=== PATIENT | female | born 1980 | race Two or more races ===

== ENCOUNTER 2023-07-06 10:04 | Inpatient (IN) | payer MEDICAID ==
[~2023-07-06] VITALS: Ht 162.6 cm; Wt 53.3 kg
[2023-07-06 10:37] VITALS: PULSE 122; RESP 22; O2SAT 98
[2023-07-06] MEDS ORDERED: ONDANSETRON HCL 4 MG/2 ML VIAL IV ONE (11:00)
[2023-07-06] MEDS ORDERED: VANCOMYCIN PER PHARMACY 0 MG IV SCH ×2 (11:00→16:45)
[2023-07-06] MEDS ORDERED: SODIUM CHLORIDE 0.9% 1,500 ML IV ONE (11:00)
[2023-07-06 11:25] LABS: Urine Bacteria NONE SEEN /hpf (None Seen); Urine Blood Negative /uL (Negative); Urine Clarity Clear (Clear); Urine Color PINK (Yellow); Urine Protein, UAD 2+ (Negative); Urine Specific Gravity 1.022 (1.001-1.035); Urine WBC 11 /hpf (0 - 5)
[2023-07-06 11:29] LABS: Amphetamine Screen, Urine Neg (NEGATIVE); Barbiturate Scree,Urine Neg (NEGATIVE); Benzodiazephine Screen, Urine Neg (NEGATIVE); Cocaine Screen, Urine Neg (NEGATIVE)
[2023-07-06 11:30] LABS: Cannabinoid Screen, Urine Neg (NEGATIVE); Opiate Scree,Urine Neg (NEGATIVE); Phencyclidine Screen, Urine Neg (NEGATIVE)
[2023-07-06 11:30] LABS: Base Excess 3.6 mmol/L (-2.0-2.0)
[2023-07-06] MEDS ORDERED: VANCOMYCIN 1GM/250ML 250 ML IV ONE (11:30)
[2023-07-06 11:32] LABS: Basophils # (auto) 0 10 ^3/uL (0-0.2); Basophils % (auto) 0.2 % (0.0-2.0); Eosinophils # (auto) 0 10 ^3/uL (0-0.8); Hematocrit 33.4 % (36.0-46.0); Hemoglobin 10.7 g/dL (12.2-16.2); Lymphocytes # (auto) 0.2 10 ^3/uL (0.4-5.4); Lymphocytes % (auto) 2.4 % (10.0-50.0); Mean Corpuscular Hemoglobin 29.1 pg (28.0-32.0); Mean Corpuscular Hgb Conc. 32.1 g/dL (32.0-36.0); Mean Corpuscular Volume 90.6 fL (80.0-100.0); Monocytes # (auto) 0.3 10 ^3/uL (0-1.3); Monocytes % (auto) 3.2 % (0.0-12.0); Neutrophils # (auto) 7.9 10 ^3/uL (1.6-8.6); Neutrophils % (auto) 94.2 % (37.0-80.0); Nucleated Red Blood Cells % 0.2 %; Red Blood Cells 3.68 10^6/uL (4.0-5.20); White Blood Cell 8.4 10^3/uL (4.4-10.8)
[2023-07-06 11:40] LABS: Red Cell Distribution Width 27.4 % (11.8-14.3)
[2023-07-06 11:49] LABS: Alanine Aminotransferase 50 U/L (7-40); Albumin 2.2 g/dL (3.2-4.8); Alkaline Phosphatase 371 U/L (46-116); Anion Gap 8 (5-15); Aspartate Aminotransferase 269 U/L (13-40); BUN/Creatinine Ratio 34.9 (10.0-20.0); Bilirubin, Total 0.6 mg/dL (0.2-1.0); Blood Alcohol < 3.0 mg/dL (<10); Blood Urea Nitrogen 15 mg/dL (9-23); Calcium 7.3 mg/dL (8.5-10.1); Carbon Dioxide 25 mmol/L (20-30); Chloride 103 mmol/L (98-107); Glucose 104 mg/dL (74-106); Lactic Acid w/Reflex 2.5 mmol/L (0.4-2.0); Potassium 3.7 mmol/L (3.5-5.1); Sodium 136 mmol/L (136-145); Total Protein 5.6 g/dL (5.7-8.2)
[2023-07-06 11:56] LABS: INR 1.04 (0.9-1.15); Partial Thromboplastin Time 29.6 SEC (24.5-34.5); Prothrombin Time 10.9 sec (9.3-11.8)
[2023-07-06] MEDS ORDERED: PIPERACILLIN-TAZOB 3.375GM 100 ML IV SCH ×2 (12:00→20:00)
[2023-07-06 13:05] LABS: Magnesium 1.4 mg/dL (1.6-2.6)
[2023-07-06] MEDS ORDERED: IOHEXOL 350 MG/ML 100ML IJ ONE (13:14)
[2023-07-06 13:24] LABS: Acetaminophen < 2.0 UG/ML (10.0-20.0); Salicylate < 3.0 mg/dL (2.8-20.0)
[2023-07-06] MEDS ORDERED: SODIUM CHLORIDE 0.9% 1,000 ML IV ONE (15:30)
[2023-07-06] MEDS ORDERED: PPN PER PHARMACY 0 ML IV SCH (16:45)
[2023-07-06] MEDS ORDERED: MEROPENEM 1GM IVPB 100 ML IV ONE (16:45)
[2023-07-06] MEDS ORDERED: PANTOPRAZOLE 40 MG/10 ML VIAL INJ IV ONE (16:45)
[2023-07-06] MEDS ORDERED: NITROGLYCERIN 0.4 MG SL TAB SL PRN (16:45)
[2023-07-06] MEDS ORDERED: ACETAMINOPHEN 650 MG RECT SUPP PR PRN (16:45)
[2023-07-06] MEDS ORDERED: MORPHINE SULFATE INJ 2 MG/ml SYRG IV PRN (16:45)
[2023-07-06] MEDS: SODIUM CHLORIDE 0.9% 1,000 ML IV SCH (17:05)
[2023-07-06] MEDS: MAGNESIUM SULFATE 1GM/100ML 100 ML IV SCH ×4 (17:06→20:47)
[2023-07-06 19:15] VITALS: PULSE 113; RESP 19; O2SAT 97
[2023-07-06] MEDS ORDERED: DEXTROSE (50%) 50ML SYRG IV SCH (20:00)
[2023-07-06] MEDS ORDERED: AMINO ACID INFUSION IN D10W 1,000 ML IV NR (20:00)
[2023-07-06 22:33] LABS: Erythrocyte Sedimentation Rate 62 mm/hr (0-20)
[2023-07-06] MEDS: InsuLIN REG 1unit/0.01ml Soln (100units/ml) SC SCH (23:09)
[2023-07-06] MEDS: ACCU-CHEK COMFORT CURVE STRIP VI SCH (23:10)
[2023-07-06] MEDS: MEROPENEM 1GM IVPB 100 ML IV SCH (23:13)
[2023-07-07] VITALS (14 sets, daily range): BP systolic 90–110; BP diastolic 57–78; PULSE 92–102; RESP 14–23; O2SAT 98–100
[2023-07-07] MEDS: VANCOMYCIN 1GM/250ML 250 ML IV SCH ×2 (01:02→13:00)
[2023-07-07] MEDS: InsuLIN REG 1unit/0.01ml Soln (100units/ml) SC SCH ×2 (05:33→12:00)
[2023-07-07] MEDS: ACCU-CHEK COMFORT CURVE STRIP VI SCH ×2 (05:33→12:00)
[2023-07-07 06:16] LABS: Basophils # (auto) 0 10 ^3/uL (0-0.2); Eosinophils # (auto) 0 10 ^3/uL (0-0.8); Hemoglobin 8.2 g/dL (12.2-16.2); Lymphocytes # (auto) 0.1 10 ^3/uL (0.4-5.4); Monocytes # (auto) 0.3 10 ^3/uL (0-1.3); Neutrophils # (auto) 8.5 10 ^3/uL (1.6-8.6); Nucleated Red Blood Cells % 0.1 %
[2023-07-07 06:20] LABS: Basophils % (auto) 0.4 % (0.0-2.0); Hematocrit 25.1 % (36.0-46.0); Lymphocytes % (auto) 1.3 % (10.0-50.0); Mean Corpuscular Hemoglobin 29.5 pg (28.0-32.0); Mean Corpuscular Hgb Conc. 32.8 g/dL (32.0-36.0); Mean Corpuscular Volume 89.9 fL (80.0-100.0); Monocytes % (auto) 3.4 % (0.0-12.0); Neutrophils % (auto) 94.9 % (37.0-80.0)
[2023-07-07 06:22] LABS: Alanine Aminotransferase 35 U/L (7-40); Albumin 1.8 g/dL (3.2-4.8); Alkaline Phosphatase 270 U/L (46-116); Anion Gap 6 (5-15); Aspartate Aminotransferase 152 U/L (13-40); BUN/Creatinine Ratio 26.5 (10.0-20.0); Bilirubin, Total 0.4 mg/dL (0.2-1.0); Blood Urea Nitrogen 9 mg/dL (9-23); Calcium 6.7 mg/dL (8.5-10.1); Carbon Dioxide 26 mmol/L (20-30); Chloride 106 mmol/L (98-107); Glucose 102 mg/dL (74-106); Phosphorus 2.7 mg/dL (2.4-5.1); Sodium 138 mmol/L (136-145); Total Protein 4.7 g/dL (5.7-8.2); Triglycerides 303 mg/dL (< 150)
[2023-07-07 06:28] LABS: Potassium 2.8 mmol/L (3.5-5.1)
[2023-07-07 06:34] LABS: Red Cell Distribution Width 27.6 % (11.8-14.3)
[2023-07-07] MEDS ORDERED: POTASSIUM CHL 20 Meq TABLET PO ONE (06:45)
[2023-07-07] MEDS: SODIUM CHLORIDE 0.9% 1,000 ML IV SCH (07:49)
[2023-07-07 08:00] LABS: Anisocytosis Moderate; Platelet Estimate Decreased
[2023-07-07] MEDS: MEROPENEM 1GM IVPB 100 ML IV SCH (08:24)
[2023-07-07] MEDS ORDERED: LORazepam 2MG/ML-1ML VIAL IV PRN (09:45)
[2023-07-07] MEDS: PANTOPRAZOLE 40 MG/10 ML VIAL INJ IV SCH (10:00)
[2023-07-07 10:33] LABS: Free T4 (Free Thyroxine) 0.83 ng/dL (0.89-1.76)
[2023-07-07 10:34] LABS: Folate (Folic Acid) 2.72 ng/mL (>5.38)
[2023-07-07] MEDS ORDERED: DexAMETHasone SOD PHOS 10MG/1ML VIAL INJ IV ONE (11:45)
[2023-07-07] MEDS: DexAMETHasone SOD PHOS 10MG/1ML VIAL INJ IV SCH ×2 (12:00→18:18)
[2023-07-07 14:49] LABS: Chloride 106 mmol/L (98-107); Sodium 136 mmol/L (136-145)
[2023-07-07 14:50] LABS: Anion Gap 4 (5-15); Calcium 6.5 mg/dL (8.7-10.4); Carbon Dioxide 26 mmol/L (20-30)
[2023-07-07 14:55] LABS: BUN/Creatinine Ratio 33.3 (10.0-20.0); Blood Urea Nitrogen 11 mg/dL (9-23); Glucose 146 mg/dL (74-106)
[2023-07-07 15:03] LABS: Potassium 2.9 mmol/L (3.5-5.1)
[2023-07-07] MEDS ORDERED: LIDOCAINE 2%HCL (LOCAL ANESTH.) INJ 10ml MDV ONE (15:26)
[2023-07-07 15:58] LABS: COVID19 ANTIGEN SOFIA FIA NEGATIVE (NEGATIVE); Rapid Influenza A Negative (Negative); Rapid Influenza B Negative (Negative)
[2023-07-07] MEDS: DOXYCYCLINE 100MG/250ML 250 ML IV SCH (16:06)
[2023-07-07] MEDS ORDERED: MAGNESIUM SULFATE 1GM/100ML 100 ML IV ONE ×2 (16:15→21:00)
[2023-07-07 16:29] LABS: Protein, CSF 76.3 mg/dL (15-45)
[2023-07-07 16:43] LABS: CSF White Blood Cells 1 CUMM (0-5)
[2023-07-07] MEDS: POTASSIUM CHL 20MEQ/100ML 100 ML IV SCH ×4 (16:58→23:00)
[2023-07-07] MEDS ORDERED: PPN PER PHARMACY 0 ML IV SCH (20:00)
[2023-07-07] MEDS: PENICILLIN G POTASSIUM 3,000,000 UNITS in D5W 5% 50 ML IV SCH ×2 (21:20→22:00)
[2023-07-07] MEDS: CEFTRIAXONE SODIUM 2 GM in D5W 5% 100 ML IV SCH (22:41)
[2023-07-08] MEDS: DexAMETHasone SOD PHOS 10MG/1ML VIAL INJ IV SCH ×4 (00:20→18:47)
[2023-07-08] MEDS: VANCOMYCIN 1GM/250ML 250 ML IV SCH (00:22)
[2023-07-08] MEDS: PENICILLIN G POTASSIUM 3,000,000 UNITS in D5W 5% 50 ML IV SCH ×2 (01:56→06:21)
[2023-07-08] MEDS: DOXYCYCLINE 100MG/250ML 250 ML IV SCH ×2 (02:09→15:16)
[2023-07-08 04:19] LABS: Basophils # (auto) 0 10 ^3/uL (0-0.2); Basophils % (auto) 0.2 % (0.0-2.0); Eosinophils # (auto) 0 10 ^3/uL (0-0.8); Lymphocytes # (auto) 0.1 10 ^3/uL (0.4-5.4); Neutrophils # (auto) 3.6 10 ^3/uL (1.6-8.6)
[2023-07-08 04:23] LABS: Hematocrit 25.1 % (36.0-46.0); Hemoglobin 8.1 g/dL (12.2-16.2); Mean Corpuscular Hemoglobin 30.1 pg (28.0-32.0); Mean Corpuscular Hgb Conc. 32.4 g/dL (32.0-36.0); Monocytes # (auto) 0.1 10 ^3/uL (0-1.3); Monocytes % (auto) 3.6 % (0.0-12.0); Neutrophils % (auto) 93.2 % (37.0-80.0); Nucleated Red Blood Cells % 0.1 %; White Blood Cell 3.8 10^3/uL (4.4-10.8)
[2023-07-08 04:27] LABS: Red Cell Distribution Width 27.5 % (11.8-14.3)
[2023-07-08 04:34] LABS: Lactic Acid w/Reflex 2.4 mmol/L (0.4-2.0)
[2023-07-08 04:37] LABS: Alanine Aminotransferase 25 U/L (7-40); Albumin 1.7 g/dL (3.2-4.8); Alkaline Phosphatase 262 U/L (46-116); Anion Gap 6 (5-15); Aspartate Aminotransferase 105 U/L (13-40); Blood Urea Nitrogen 9 mg/dL (9-23); Carbon Dioxide 21 mmol/L (20-30); Chloride 108 mmol/L (98-107); Glucose 177 mg/dL (74-106); Magnesium 1.4 mg/dL (1.6-2.6); Potassium 3.1 mmol/L (3.5-5.1); Sodium 135 mmol/L (136-145)
[2023-07-08 04:38] LABS: Bilirubin, Total 0.3 mg/dL (0.2-1.0); Total Protein 4.5 g/dL (5.7-8.2)
[2023-07-08 04:51] LABS: Calcium 5.8 mg/dL (8.7-10.4)
[2023-07-08] MEDS: CALCIUM GLUC 1,000mg/50ml-NS 50 ML IV SCH ×2 (05:43→06:12)
[2023-07-08] MEDS: POTASSIUM CHL 20MEQ/100ML 100 ML IV SCH ×4 (06:33→13:00)
[2023-07-08 07:07] LABS: RPR Non Reactive (Non Reactive)
[2023-07-08] MEDS: MAGNESIUM SULFATE 1GM/100ML 100 ML IV SCH ×4 (07:17→11:14)
[2023-07-08 08:00] VITALS: PULSE 98; RESP 22; O2SAT 100
[2023-07-08 08:04] LABS: Chloride 108 mmol/L (98-107); Potassium 3.4 mmol/L (3.5-5.1); Sodium 135 mmol/L (136-145)
[2023-07-08 08:05] LABS: Anion Gap 6 (5-15); Carbon Dioxide 21 mmol/L (20-30)
[2023-07-08 08:10] LABS: BUN/Creatinine Ratio 20.6 (10.0-20.0); Blood Urea Nitrogen 7 mg/dL (9-23); Glucose 154 mg/dL (74-106)
[2023-07-08 09:07] LABS: Hepatitis B Surface Antigen Negative (Negative)
[2023-07-08 09:28] LABS: Hepatitis A Ab IgM Negative; Hepatitis B Core IgM Negative
[2023-07-08 09:29] LABS: Hepatitis C Antibody Negative (Negative)
[2023-07-08 09:51] LABS: Anisocytosis Moderate; Platelet Estimate Decreased
[2023-07-08 10:06] LABS: Treponema Pallidum Ab LC Non Reactive (Non Reactive)
[2023-07-08] MEDS: CEFTRIAXONE SODIUM 2 GM in D5W 5% 100 ML IV SCH ×2 (11:14→21:04)
[2023-07-08] MEDS: PANTOPRAZOLE 40 MG/10 ML VIAL INJ IV SCH (11:14)
[2023-07-08] MEDS ORDERED: ACYCLOVIR 10MG/KG Q8HR PER RX 0 ML IV SCH (11:45)
[2023-07-08 14:55] LABS: Chloride 108 mmol/L (98-107); Potassium 4.2 mmol/L (3.5-5.1); Sodium 135 mmol/L (136-145)
[2023-07-08 14:56] LABS: Anion Gap 5 (5-15); Carbon Dioxide 22 mmol/L (20-30)
[2023-07-08 14:57] LABS: Calcium 6.1 mg/dL (8.7-10.4)
[2023-07-08] MEDS ORDERED: VANCOMYCIN 1GM/250ML 250 ML IV SCH ×2 (15:00→17:00)
[2023-07-08 15:01] LABS: Blood Urea Nitrogen 9 mg/dL (9-23); Glucose 162 mg/dL (74-106)
[2023-07-08 15:02] LABS: Magnesium 1.6 mg/dL (1.6-2.6)
[2023-07-08] MEDS: ACYCLOVIR SOD 50MG/ML 500 MG in D5W 5% 100 ML IV SCH ×2 (15:16→22:44)
[2023-07-08 19:30] VITALS: PULSE 90; RESP 18; O2SAT 96
[2023-07-08 22:06] LABS: HSV-1 DNA CSF Negative (Negative); HSV-2 DNA Negative (Negative)
[2023-07-09] MEDS: DexAMETHasone SOD PHOS 10MG/1ML VIAL INJ IV SCH ×4 (00:18→19:17)
[2023-07-09] MEDS: DOXYCYCLINE 100MG/250ML 250 ML IV SCH ×2 (02:22→16:03)
[2023-07-09 04:55] LABS: Basophils # (auto) 0 10 ^3/uL (0-0.2); Eosinophils # (auto) 0 10 ^3/uL (0-0.8); Hematocrit 25.7 % (36.0-46.0); Hemoglobin 8.5 g/dL (12.2-16.2); Lymphocytes # (auto) 0.2 10 ^3/uL (0.4-5.4); Lymphocytes % (auto) 3.2 % (10.0-50.0); Mean Corpuscular Hemoglobin 29.3 pg (28.0-32.0); Mean Corpuscular Hgb Conc. 33.1 g/dL (32.0-36.0); Mean Corpuscular Volume 88.6 fL (80.0-100.0); Monocytes # (auto) 0.3 10 ^3/uL (0-1.3); Monocytes % (auto) 5.5 % (0.0-12.0); Neutrophils # (auto) 4.8 10 ^3/uL (1.6-8.6); Neutrophils % (auto) 91.3 % (37.0-80.0); Nucleated Red Blood Cells % 0.1 %; White Blood Cell 5.3 10^3/uL (4.4-10.8)
[2023-07-09 05:10] LABS: Red Cell Distribution Width 26.9 % (11.8-14.3)
[2023-07-09 05:14] LABS: Alanine Aminotransferase 49 U/L (7-40); Alkaline Phosphatase 332 U/L (46-116); Anion Gap 7 (5-15); Aspartate Aminotransferase 169 U/L (13-40); Bilirubin, Total 0.5 mg/dL (0.2-1.0); Blood Urea Nitrogen 8 mg/dL (9-23); Calcium 6.5 mg/dL (8.7-10.4); Carbon Dioxide 25 mmol/L (20-30); Chloride 102 mmol/L (98-107); Glucose 128 mg/dL (74-106); Magnesium 1.4 mg/dL (1.6-2.6); Sodium 134 mmol/L (136-145); Total Protein 5.3 g/dL (5.7-8.2)
[2023-07-09 05:18] LABS: Potassium 2.7 mmol/L (3.5-5.1)
[2023-07-09] MEDS: ACYCLOVIR SOD 50MG/ML 500 MG in D5W 5% 100 ML IV SCH (06:41)
[2023-07-09] MEDS: POTASSIUM CHL 20MEQ/100ML 100 ML IV SCH ×4 (09:50→22:00)
[2023-07-09] MEDS: MAGNESIUM SULFATE 1GM/100ML 100 ML IV SCH ×2 (09:51→11:27)
[2023-07-09] MEDS: CEFTRIAXONE SODIUM 2 GM in D5W 5% 100 ML IV SCH (09:51)
[2023-07-09] MEDS: PANTOPRAZOLE 40 MG/10 ML VIAL INJ IV SCH (09:52)
[2023-07-09 09:55] LABS: Platelet Estimate Decreased
[2023-07-09 09:56] LABS: Anisocytosis Moderate
[2023-07-09] MEDS ORDERED: POTASSIUM CHL 20MEQ/100ML 100 ML IV SCH (14:00)
[2023-07-09] MEDS ORDERED: GADOTERATE MEG 7.5 MMOL/15ml INJ (0.5MMOL/ml) IV ONE (14:01)
[2023-07-09] MEDS ORDERED: MEROPENEM 1GM IVPB 100 ML IV ONE (14:30)
[2023-07-09 17:06] LABS: CAP Mandated Reflex to Culture Not Indicated (.); Cryptococcus Antigen CSF Negative (Negative)
[2023-07-09 19:05] LABS: Chloride 105 mmol/L (98-107); Potassium 3.4 mmol/L (3.5-5.1); Sodium 135 mmol/L (136-145)
[2023-07-09 19:06] LABS: Anion Gap 6 (5-15); Carbon Dioxide 24 mmol/L (20-30)
[2023-07-09 19:07] LABS: Calcium 6.7 mg/dL (8.5-10.1)
[2023-07-09 19:11] LABS: Blood Urea Nitrogen 8 mg/dL (9-23); Glucose 144 mg/dL (74-106)
[2023-07-09] MEDS: PIPERACILLIN-TAZOB 3.375GM 100 ML IV SCH (19:17)
[2023-07-09] MEDS ORDERED: POTASSIUM CHL 20MEQ/100ML 100 ML IV ONE (19:30)
[2023-07-09 20:00] VITALS: PULSE 81; RESP 14; O2SAT 100
[2023-07-09] MEDS ORDERED: MEROPENEM 1GM IVPB 100 ML IV SCH (22:00)
[2023-07-10] MEDS: DexAMETHasone SOD PHOS 10MG/1ML VIAL INJ IV SCH ×4 (01:16→20:01)
[2023-07-10] MEDS: PIPERACILLIN-TAZOB 3.375GM 100 ML IV SCH ×3 (01:18→22:10)
[2023-07-10] MEDS: DOXYCYCLINE 100MG/250ML 250 ML IV SCH ×2 (02:42→17:10)
[2023-07-10 03:07] LABS: Alanine Aminotransferase 88 U/L (7-40); Albumin 2.1 g/dL (3.2-4.8); Alkaline Phosphatase 364 U/L (46-116); Anion Gap 6 (5-15); Aspartate Aminotransferase 272 U/L (13-40); BUN/Creatinine Ratio 26.5 (10.0-20.0); Bilirubin, Total 0.6 mg/dL (0.2-1.0); Blood Urea Nitrogen 9 mg/dL (9-23); Calcium 6.6 mg/dL (8.7-10.4); Carbon Dioxide 25 mmol/L (20-30); Chloride 104 mmol/L (98-107); Glucose 139 mg/dL (74-106); Potassium 3.4 mmol/L (3.5-5.1); Sodium 135 mmol/L (136-145); Total Protein 5.4 g/dL (5.7-8.2)
[2023-07-10] MEDS ORDERED: SODIUM CHLORIDE 0.9% 1,000 ML IV ONE (04:15)
[2023-07-10 05:18] LABS: Basophils # (auto) 0 10 ^3/uL (0-0.2); Basophils % (auto) 0.1 % (0.0-2.0); Eosinophils # (auto) 0 10 ^3/uL (0-0.8); Hematocrit 26.7 % (36.0-46.0); Hemoglobin 8.8 g/dL (12.2-16.2); Lymphocytes # (auto) 0.1 10 ^3/uL (0.4-5.4); Mean Corpuscular Hemoglobin 29.4 pg (28.0-32.0); Mean Corpuscular Hgb Conc. 32.9 g/dL (32.0-36.0); Mean Corpuscular Volume 89.5 fL (80.0-100.0); Monocytes # (auto) 0.4 10 ^3/uL (0-1.3); Monocytes % (auto) 8.1 % (0.0-12.0); Neutrophils # (auto) 3.9 10 ^3/uL (1.6-8.6); Neutrophils % (auto) 88.8 % (37.0-80.0); Nucleated Red Blood Cells % 0.3 %; Red Blood Cells 2.98 10^6/uL (4.0-5.20); White Blood Cell 4.4 10^3/uL (4.4-10.8)
[2023-07-10 05:19] LABS: INR 1.05 (0.9-1.15); Partial Thromboplastin Time 24.5 SEC (24.5-34.5)
[2023-07-10 05:39] LABS: Alanine Aminotransferase 92 U/L (7-40); Albumin 2.1 g/dL (3.2-4.8); Alkaline Phosphatase 361 U/L (46-116); Anion Gap 6 (5-15); Aspartate Aminotransferase 277 U/L (13-40); Bilirubin, Total 0.6 mg/dL (0.2-1.0); Blood Urea Nitrogen 9 mg/dL (9-23); Calcium 6.8 mg/dL (8.7-10.4); Carbon Dioxide 23 mmol/L (20-30); Chloride 103 mmol/L (98-107); Glucose 179 mg/dL (74-106); Magnesium 1.5 mg/dL (1.6-2.6); Sodium 132 mmol/L (136-145); Total Protein 5.3 g/dL (5.7-8.2)
[2023-07-10 05:40] LABS: Lactic Acid w/Reflex 2.9 mmol/L (0.4-2.0)
[2023-07-10] MEDS ORDERED: LACTULOSE 10g/15ml SOLN 473ML PR ONE (08:45)
[2023-07-10] MEDS: POTASSIUM CHL 20MEQ/100ML 100 ML IV SCH ×6 (09:25→22:09)
[2023-07-10] MEDS: MAGNESIUM SULFATE 1GM/100ML 100 ML IV SCH ×2 (09:25→09:38)
[2023-07-10 10:07] LABS: VDRL, Cererbrospinal Fluid Non Reactive (Non Rea:<1:1)
[2023-07-10] MEDS ORDERED: LACTULOSE 10g/15ml SOLN 473ML PR SCH (12:00)
[2023-07-10] MEDS ORDERED: LACTULOSE 20Gm/30ML SOLN PO SCH (12:00)
[2023-07-10 12:11] LABS: Chloride 105 mmol/L (98-107); Sodium 134 mmol/L (136-145)
[2023-07-10 12:12] LABS: Anion Gap 4 (5-15); Calcium 6.7 mg/dL (8.7-10.4); Carbon Dioxide 25 mmol/L (20-30)
[2023-07-10 12:17] LABS: BUN/Creatinine Ratio 24.2 (10.0-20.0); Blood Urea Nitrogen 8 mg/dL (9-23); Glucose 140 mg/dL (74-106)
[2023-07-10 12:18] LABS: Magnesium 1.8 mg/dL (1.6-2.6)
[2023-07-10 12:25] LABS: Potassium 2.8 mmol/L (3.5-5.1)
[2023-07-10] MEDS ORDERED: PATIENTS OWN MEDICATION PO SCH ×2 (13:15→22:00)
[2023-07-10] MEDS: PANTOPRAZOLE 40 MG/10 ML VIAL INJ IV SCH (13:18)
[2023-07-10] MEDS: LACTULOSE 20Gm/30ML SOLN PO SCH (17:10)
[2023-07-10 19:30] VITALS: PULSE 83; RESP 18; O2SAT 100
[2023-07-10 19:45] LABS: Urine Bacteria NONE SEEN /hpf (None Seen); Urine Blood Negative /uL (Negative); Urine Clarity Clear (Clear); Urine Color Yellow (Yellow); Urine Protein, UAD 1+ (Negative); Urine Specific Gravity 1.011 (1.001-1.035); Urine Urobilinogen Normal (Negative); Urine WBC 2 /hpf (0 - 5)
[2023-07-10 20:40] LABS: Chloride 104 mmol/L (98-107); Sodium 135 mmol/L (136-145)
[2023-07-10 20:41] LABS: Anion Gap 5 (5-15); Carbon Dioxide 26 mmol/L (20-30)
[2023-07-10 20:46] LABS: Glucose 166 mg/dL (74-106)
[2023-07-10 20:47] LABS: BUN/Creatinine Ratio 24.4 (10.0-20.0); Blood Urea Nitrogen 10 mg/dL (9-23); Magnesium 1.6 mg/dL (1.6-2.6)
[2023-07-10 21:05] LABS: Potassium 2.8 mmol/L (3.5-5.1)
[2023-07-11] MEDS ORDERED: LACTULOSE 10g/15ml SOLN 473ML PR ONE (02:30)
[2023-07-11] MEDS ORDERED: POTASSIUM CHL 20MEQ/100ML 100 ML IV SCH (04:00)
[2023-07-11] MEDS ORDERED: LACTULOSE 20Gm/30ML SOLN PR ONE (04:00)
[2023-07-11] MEDS ORDERED: LACTULOSE 20Gm/30ML SOLN ONE (04:12)
[2023-07-11] MEDS: DOXYCYCLINE 100MG/250ML 250 ML IV SCH ×3 (04:56→18:55)
[2023-07-11] MEDS: DexAMETHasone SOD PHOS 10MG/1ML VIAL INJ IV SCH ×2 (05:04)
[2023-07-11 07:02] LABS: Basophils # (auto) 0 10 ^3/uL (0-0.2); Basophils % (auto) 0.2 % (0.0-2.0); Eosinophils # (auto) 0 10 ^3/uL (0-0.8); Hematocrit 29.5 % (36.0-46.0); Hemoglobin 9.6 g/dL (12.2-16.2); Lymphocytes # (auto) 0.1 10 ^3/uL (0.4-5.4); Lymphocytes % (auto) 2.1 % (10.0-50.0); Mean Corpuscular Hemoglobin 29.3 pg (28.0-32.0); Mean Corpuscular Hgb Conc. 32.6 g/dL (32.0-36.0); Mean Corpuscular Volume 89.7 fL (80.0-100.0); Monocytes # (auto) 0.5 10 ^3/uL (0-1.3); Monocytes % (auto) 7.5 % (0.0-12.0); Neutrophils # (auto) 6.3 10 ^3/uL (1.6-8.6); Neutrophils % (auto) 90.2 % (37.0-80.0)
[2023-07-11 07:03] LABS: Red Cell Distribution Width 26.5 % (11.8-14.3)
[2023-07-11] MEDS: LACTULOSE 20Gm/30ML SOLN PO SCH ×4 (07:39→18:00)
[2023-07-11 08:20] LABS: Platelet Estimate Decreased
[2023-07-11 08:21] LABS: Anisocytosis Moderate; Hypochromia Slight
[2023-07-11 08:23] LABS: Ovalocytes FEW
[2023-07-11 08:24] LABS: Tear Drop Cells FEW
[2023-07-11] MEDS: PIPERACILLIN-TAZOB 3.375GM 100 ML IV SCH ×3 (08:31→22:29)
[2023-07-11 08:39] LABS: Alanine Aminotransferase 102 U/L (7-40); Albumin 2.2 g/dL (3.2-4.8); Alkaline Phosphatase 379 U/L (46-116); Anion Gap 6 (5-15); Aspartate Aminotransferase 200 U/L (13-40); BUN/Creatinine Ratio 27.9 (10.0-20.0); Bilirubin, Total 0.8 mg/dL (0.2-1.0); Blood Urea Nitrogen 12 mg/dL (9-23); Calcium 7.1 mg/dL (8.7-10.4); Carbon Dioxide 23 mmol/L (20-30); Chloride 106 mmol/L (98-107); Glucose 206 mg/dL (74-106); Magnesium 1.5 mg/dL (1.6-2.6); Sodium 135 mmol/L (136-145); Total Protein 5.4 g/dL (5.7-8.2)
[2023-07-11 08:45] VITALS: PULSE 112; RESP 18; O2SAT 96
[2023-07-11] MEDS: POTASSIUM CHL 20MEQ/100ML 100 ML IV SCH (08:45)
[2023-07-11] MEDS: PANTOPRAZOLE 40 MG/10 ML VIAL INJ IV SCH (10:32)
[2023-07-11] MEDS: MAGNESIUM SULFATE 1GM/100ML 100 ML IV SCH ×2 (10:41→12:46)
[2023-07-11] MEDS ORDERED: ONDANSETRON HCL 4 MG/2 ML VIAL IV PRN (14:45)
[2023-07-11] MEDS: LORazepam 2MG/ML-1ML VIAL IV PRN ×2 (15:09→22:40)
[2023-07-11 17:53] VITALS: PULSE 135; RESP 22; O2SAT 95
[2023-07-11] MEDS ORDERED: hydrOXYzine HCL 10 MG TAB PO PRN (18:15)
[2023-07-11 20:00] VITALS: BP 121/96; PULSE 122; PULSE 129; RESP 18; RESP 20; TEMP 97.9
[2023-07-11 22:00] VITALS: BP 121/96; PULSE 129; RESP 18; TEMP 97.9; O2SAT 90
[2023-07-12] MEDS: LACTULOSE 20Gm/30ML SOLN PO SCH (00:36)
[2023-07-12] MEDS: DOXYCYCLINE 100MG/250ML 250 ML IV SCH (04:19)
[2023-07-12 04:52] VITALS: BP 98/48; PULSE 81; RESP 22; TEMP 97.6; O2SAT 93
[2023-07-12] MEDS ORDERED: NOREPINEPHRINE 8 MG/250ML KIT 250 ML IV ONE (05:31)
[2023-07-12] MEDS ORDERED: ETOMIDATE (2MG/ML) 20ML VIAL IV ONE (06:45)
[2023-07-12] MEDS ORDERED: SUCCINYLCHOLINE CHLORIDE 20 MG/ML 10ML VIAL IV ONE (06:45)
[2023-07-12] MEDS ORDERED: EPINEPHrine HCL 1 MG/10 ML SYRG IV ONE (11:26)
[2023-07-12] MEDS ORDERED: SODIUM BICARBONATE 8.4% INJ 50ML SYRINGE IV ONE (11:26)
[2023-07-13 06:06] LABS: CMV IgM Antibody <30.0 AU/mL (0.0-29.9)
[2023-07-13 11:07] LABS: Treponema Pallidum Ab LC Non Reactive (Non Reactive)
[2023-07-14 00:06] LABS: Chlamydia Trachomatis, NAA Negative (Negative); Neisseria gonorrhoeae, NAA Negative (Negative)
[2023-07-14 19:06] LABS: Treponema pallidum Ab (FTA-Ab) Non Reactive (Non Reactive)
== END 2023-07-12 11:27 | DRG 720 ==
LOC: ER 10:04 → TELE 16:44 → TELE-CENTR 07-11 17:27 → ICU WEST 07-12 05:40
PROVIDERS: ADMIT Internal Medicine Pulmonary Disease; ATTEND Internal Medicine
PROC: 009U3ZX Drainage of Spinal Canal, Percutaneous Approach, Diagnostic (ICD-10-PCS; principal; 2023-07-07)
PROC: B01B1ZZ Fluoroscopy of Spinal Cord using Low Osmolar Contrast (ICD-10-PCS; 2023-07-07)
PROC: 5A12012 Performance of Cardiac Output, Single, Manual (ICD-10-PCS; 2023-07-12)
DX: A41.9 Sepsis, unspecified organism (principal); J96.01 Acute respiratory failure with hypoxia; K72.00 Acute and subacute hepatic failure without coma; A77.0 Spotted fever due to Rickettsia rickettsii; G93.41 Metabolic encephalopathy; E43 Unspecified severe protein-calorie malnutrition; J15.69 Pneumonia due to other Gram-negative bacteria; D69.6 Thrombocytopenia, unspecified; Z20.822 Contact with and (suspected) exposure to COVID-19; K76.82 Hepatic encephalopathy; K76.0 Fatty (change of) liver, not elsewhere classified; R62.7 Adult failure to thrive; N39.0 Urinary tract infection, site not specified; E83.42 Hypomagnesemia; E11.9 Type 2 diabetes mellitus without complications; F32.A Depression, unspecified; E87.6 Hypokalemia; I10 Essential (primary) hypertension; Z83.3 Family history of diabetes mellitus; Z68.20 Body mass index [BMI] 20.0-20.9, adult; Z90.49 Acquired absence of other specified parts of digestive tract; J15.9 Unspecified bacterial pneumonia
CPT/HCPCS: 36415; 36600; 62272; 70450; 70551; 70553; 71045; 71250; 71275; 74176; 80048; 80053; 80074; 80202; 80307; 80320; 80329; 81001; 81025; 82010; 82088; 82140; 82533; 82607; 82746; 82805; 82945; 82962; 83605; 83615; 83735; 83930; 83935; 84100; 84112; 84157; 84207; 84244; 84439; 84443; 84478; 84484; 85007; 85025; 85027; 85379; 85610; 85652; 85730; 86141; 86592; 86644; 86645; 86703; 86850; 86860; 86870; 86880; 86900; 86901; 86905; 86906; 86970; 86971; 87040; 87070; 87077; 87081; 87086; 87088; 87186; 87205; 87426; 87529; 87804; 87899; 88108; 89051; 92950; 93005; 93306; 93971; 94002; 95819; 99291; C9113; G0378; J0696; J1100; J2001; J2185; J2405; J2543; J3480; J3490; J7060